=== PATIENT | male | born 1935 | race Caucasian/White ===

== ENCOUNTER 2016-05-22 13:22 | Inpatient (IN) | payer MEDICARE, OTHER ==
[2016-05-22] MEDS ORDERED: SODIUM CHLORIDE 0.9% 3 ML FLUSH FLUSH PRN ×2 (13:25→14:46)
[2016-05-22] MEDS ORDERED: Albuterol/Ipratropium Neb 3 ML NEB NEB ONE (13:27)
[2016-05-22] MEDS ORDERED: AZITHROMYCIN 500 MG in D5W 250 ML IV ONE (13:28)
[2016-05-22] MEDS ORDERED: CEFTRIAXONE 2 GM in D5W 100 ML IV ONE (13:28)
[2016-05-22] MEDS ORDERED: NS 1,000 ML IV ONE ×3 (13:28→14:46)
[2016-05-22 13:45] LABS: MPV 8.2 fL (7.4-10.4)
--- NOTE | 2016-05-22 13:51 | EDPRACDOC ---
- History of Present Illness HPI: NOTE HERE WITH GRANDDAUGHTER; SENT OVER BY DR. CLAY FROM ; HX OF GLAUCOMA AND TURP; COUGH, CONGESTION, AND SHOB FOR COUPLE OF WEEKS; SEE ABOVE BUT NOT IMPROVING. 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 PT STATES HAS BEEN SICK FOR APPROX 1-2 WEEKS WITH SAME WAS GIVEN STEROIDS BUT NOT GETTING ANY BETTER. PT STATES HAVING COUGH INCREASED SOB YELLOW THICK SPUTUM PRODUCTION. STATES GETS REALLY SOB WHEN WALKING. Symptoms: Reports: Cough, Other (SOB) Recent Medications: Reports: Steroids Relevant History Of: Reports: None Shortness of Breath: Moderate Cough Frequency: Intermittent Cough Description: Reports: Productive, Congested (YELLOW SPUTUM) Ear Symptoms: Reports: None Associated Signs and Symptoms: Reports: Cough, Other (SOB) <Dong Lynne - Last Filed: 05/22/16 14:44> - General Information Chief Complaint: Generalized Weakness Stated Complaint: SENT FROM URGENT CARE Time Seen by Provider: 05/22/16 13:25 Home Medications: Home Medications Dorzolamide HCl/Timolol Maleat [Dorzolamide-Timolol Eye Drops] 1 drop OU QAM 01/03 Latanoprost 1 drop OU DAILY 06/27/15 Allergies/Adverse Reactions: Allergies Allergy/AdvReac Type Severity Reaction Status Date / Time No Known Allergies Allergy Verified 05/22/16 13:24 ED Past Medical History - History Reviewed Yes Nurses notes reviewed and agree except as marked Travel Outside of [place] in the Last 3 Months?: No - Patient Medical History Cardiac History: Reports: Syncope (NEAR SYNCOPAL EPISODE) GI/ History: Reports: BPH (HAD TURP) Musculoskeletal History: Reports: Arthritis (Chronic back pain.) Psychological History: Denies: Substance Use Disorder Surgical History: Reports: Hernia Surgery (and TURVP by Dr. Delgadillo 06/28/15. also Hemorrhoidectomy.), Other (Lumbar fusion 1999's. Right foot 2015. R shoulder 1999's.) - Family Medical History Reports: Hypertension (BROTHER), Cancer (MOTHER LUNG CA, SISTER CA), Cardiac Disorders (FATHER: [place].). Denies: Diabetes, Stroke - Social Medical History Smoking Status: Never smoker Social History: Denies: Substance Use Disorder ETOH: None Substance Abuse: None Lives With: Other Lives In: Home <Dong Lynne - Last Filed: 05/22/16 14:44> EDM Review of Systems - Review of Systems ROS Negative Except as Marked: Yes All systems reviewed and were negative except as marked Constitutional: Weakness. negative: Chills, Fever, Fatigue, Loss of Appetite Eyes: No Symptoms Reported. negative: Redness, Blurred Vision, Double Vision, Discharge, Pain, Light Sensitive, Photophobia Ears: No Symptoms Reported. negative: Pain, Hearing Loss, Drainage, Ear Pulling Throat: No Symptoms Reported. negative: Pain, Swelling Nose: No Symptoms Reported. negative: Congestion, Bleeding, Discharge, Injection, Swelling, Deformity, Ecchymosis, Tender, Abrasion, Laceration Mouth: No Symptoms Reported. negative: Pain, Drooling Respiratory: Cough, Shortness of Breath. negative: Barky Cough, Brassy Cough, Hemoptysis, Wheezing Cardiovascular: No Symptoms Reported. negative: Chest Pain, Palpitations, Syncope, Edema, Orthopnea, PND, Skin Mottling, Cyanosis Gastrointestinal: No Symptoms Reported. negative: Pain, Constipation, Nausea, Vomiting, Diarrhea, Melena, Formula Intolerance Genitourinary: No Symptoms Reported. negative: Dysuria, Hematuria, Frequency, Discharge, Bleeding, Testicular Pain, Neurological: Weakness (GENERALIZED). negative: Dizziness, Gait Difficulty, Headache, Numbness, Seizure, Speech Difficulty Musculoskeletal: No Symptoms Reported. negative: Neck, Chestwall, Ribs, Back, Shoulder, Arm, Elbow, Forearm, Wrist, Hand, Pelvis, Hip, Femur, Knee, Leg, Ankle , Foot Integumentary: No Symptoms Reported. negative: Itching, Rash, Bruising, Wound Allergic/Immunologic: No Symptoms Reported. negative: Hives, Itching Hematologic: No Symptoms Reported. negative: Lymphadenopathy, Easy Bruising, Easy Bleeding Endocrine: No Symptoms Reported. negative: Weight Gain, Weight Loss Psychiatric: No Symptoms Reported. negative: Anxiety, Depression, Hallucinations, Insomnia, Suicidal <Dong Lynne - Last Filed: 05/22/16 14:44> - Physical Exam Last recorded Vital Signs: Last Vital Signs Temp 97.7 F 05/22/16 13:24 Pulse 114 05/22/16 13:24 Resp 22 05/22/16 13:48 BP 120/66 05/22/16 13:24 Pulse Ox 93 05/22/16 13:24 Oxygen Pulse Oxygen Saturation 93 O2 Device Room Air Oxygen Flow Rate Fraction of Inspired Oxygen ( 90 FIO2) <Nirmal Charles - Last Filed: 05/22/16 14:39> - Physical Exam Constitutional: No apparent distress, Alert (Awake) Oriented to: Time, Person, Place Last recorded Vital Signs: Last Vital Signs Temp 97.7 F 05/22/16 13:24 Pulse 114 05/22/16 13:24 Resp 20 05/22/16 13:24 BP 120/66 05/22/16 13:24 Pulse Ox 93 05/22/16 13:24 Oxygen Pulse Oxygen Saturation 93 O2 Device Room Air Oxygen Flow Rate Fraction of Inspired Oxygen ( FIO2) - HEENT Head: Normal ( normocephalic) Eye Exam: Normal (PERRL, EOMI, Sclera white) Oropharynx: Normal (Pharynx:Moist without exudate,Gums-no swelling) Tympanic Membrane: Normal ENT EAC: Normal TMJ: Normal Nose: No Symptoms Reported (septum midline) Neck: Normal (FROM, trachea at midline) - Respiratory/Cardiovascular Respiratory: Diminished, Rhonchi, Wheezes, Other (RHONCHI AND WHEEZING WORSE ON RIGHT) Cardiovascular: Tachycardia - GI Auscultation: Normal (NABS) Palpation: Normal (Soft,No rebound or guarding, non distended) Tenderness: Non tender Traylor's Sign: Negative - Bladder: Normal - Musculoskeletal Back: Normal (Non-Tender) Extremities: Normal (Normal tone, Pulses 2+ No cyanosis or edema, FROM) - Integumentary Skin: Normal, Warm, Dry Lymphatics: Normal (no adenopathy) - Neurologic Memory Impaired: Normal Motor Function: Normal (Normal tone, Pulses 2+ No cyanosis or edema, FROM) Cranial Nerve: Normal (CN II-X11 intact sensation, strength 5/5) Cerebellar: Normal Mood Description: Normal Perception: Normal <Dong Lynne - Last Filed: 05/22/16 14:44> - Results 05/22/16 13:35 05/22/16 13:35 WBC 28.8 xk/uL (3.8-10.8) H 05/22/16 13:35 RBC 3.78 xM/uL (4.70-6.10) L 05/22/16 13:35 Hgb 11.5 g/dL (14.0-18.0) L 05/22/16 13:35 Hct 32.9 % (42-52) L 05/22/16 13:35 MCV 87 fL (80-94) 05/22/16 13:35 MCH 30.4 pg (27-32) 05/22/16 13:35 MCHC 34.9 g/dl (33-36) 05/22/16 13:35 RDW 17.9 % (11.5-14.5) H 05/22/16 13:35 Plt Count 345 xk/uL (130-400) 05/22/16 13:35 MPV 8.2 fL (7.4-10.4) 05/22/16 13:35 Lab Results 05/22/16 13:35 WBC 28.8 H RBC 3.78 L Hgb 11.5 L Hct 32.9 L MCV 87 MCH 30.4 MCHC 34.9 RDW 17.9 H Plt Count 345 MPV 8.2 <Nirmal Charles - Last Filed: 05/22/16 14:39> - Differential Diagnosis Bronchitis, Pneumonia, Other (RESPIRATORY FAILURE) - Results 05/22/16 13:35 05/22/16 13:35 - EKG EKG #1 EKG Time: 13:38 -: Yes EKG interpreted by me Rate: bpm: 108 [place]: Normal Rhythm: ST Block: None Hypertrophy: None ST: Normal <Dong Lynne - Last Filed: 05/22/16 14:44> ED Critical Care Note - Critical Care Note Total Time (mins): 35 <Nirmal Charles - Last Filed: 05/22/16 14:39> - Departure Yes I personally saw and evaluated the patient. Disposition: Admit IP To This Hospital Decision to Admit Time: 14:40 (IKRAM) Decision to admit date: 05/22/16 Decision to admit: from ED <Nirmal Charles - Last Filed: 05/22/16 14:39> - Departure Education/Counseling Given To: Patient Education/Counseling Given Regarding: Diagnosis, Treatment, Prognosis, Follow Up - Physician Consulted Hospitalist Time Called: 14:40 Provider Called: Nico Quezada (WILL ADMIT) <Dong Lynne - Last Filed: 05/22/16 14:44> - Departure Condition: Fair Final Diagnosis: BRONCHOPNEUMONIA, LEUKOCYTOSIS WITH LEFT SHIFT, PRE RENAL AZOTEMIA Instructions: Weakness (ED) Referrals: None,No Provider [Primary Care Provider] - One Week Prescriptions: No Action Latanoprost 1 drop OU DAILY Dorzolamide HCl/Timolol Maleat [Dorzolamide-Timolol Eye Drops] 1 drop OU QAM
[2016-05-22 13:59] LABS: BLOOD UREA NITROGEN 64 MG/DL (9-20); CALC CORRECTED 10.1 MG/DL (8.4-10.2); CALCIUM 9.9 MG/DL (8.4-10.2); CALCULATED OSMOLALITY 288 MOs/Kg (270-290); CHLORIDE 99 mEq/L (98-107); CPK TOTAL WITH POSSIBLE MB 30 IU/L (55-170); GLUCOSE 281 mg/dL (70-99); SODIUM LEVEL 135 mEq/L (137-146); TOTAL PROTEIN 7.2 G/DL (6.3-8.2)
[2016-05-22 14:00] LABS: ALLEN'S TEST PASS
[2016-05-22 14:01] LABS: ABG Draw Site Left Radial
[2016-05-22 14:05] LABS: PARTIAL THROMB. TIME 21.8 SEC (22-35)
[2016-05-22 14:10] LABS: SEG NEUTROPHIL 87 % (45-76)
--- NOTE | 2016-05-22 14:25 | DIRPT ---
CLINICAL DATA: 80-year-old male with cough and shortness of breath. Tachycardia and hypotension at urgent care. Initial encounter. EXAM: CHEST 2 VIEW COMPARISON: CT Abdomen and Pelvis 06/29/2015 FINDINGS: Chronic moderate to large gastric hiatal hernia. Other mediastinal contours are within normal limits. Visualized tracheal air column is within normal limits. Streaky retrocardiac opacity superimposed and likely reflects chronic atelectasis/scarring similar to that seen on the comparison. No pneumothorax or pulmonary edema. No pleural effusion. No definite acute pulmonary opacity. Negative visible bowel gas pattern. No acute osseous abnormality identified. IMPRESSION: Chronic hiatal hernia with chronic retrocardiac opacity favored to be atelectasis/scarring. No definite acute cardiopulmonary abnormality. Electronically Signed By: Nyasia Grey M.D. On: 05/22/2016 14:22
[2016-05-22] MEDS ORDERED: ACETAMINOPHEN 325 MG/TAB TABLET PO PRN (14:46)
[2016-05-22] MEDS ORDERED: DOCUSATE-SENNA CONCENTRATE TAB PO PRN (14:46)
[2016-05-22] MEDS ORDERED: GLUCOSE (ORAL GEL) 15 GM TUBE PO PRN (14:46)
[2016-05-22] MEDS ORDERED: Albuterol/Ipratropium Neb 3 ML NEB NEB PRN (14:46)
[2016-05-22] MEDS ORDERED: SIMETHICONE 80 MG TAB PO PRN (14:46)
[2016-05-22] MEDS ORDERED: DEXTROSE 25 GM/50 ML PFS IV PRN (14:46)
[2016-05-22] MEDS ORDERED: ACETAMINOPHEN 650 MG SUPP PR PRN (14:46)
[2016-05-22] MEDS ORDERED: ONDANSETRON HCL 4 MG/2 ML VIAL IV PRN (14:46)
[2016-05-22] MEDS ORDERED: METOCLOPRAMIDE 10 MG/2 ML VIAL IV PRN (14:46)
[2016-05-22] MEDS ORDERED: GLUCAGON 1 MG VIAL SQ PRN (14:46)
[2016-05-22] MEDS ORDERED: DORZOLAMIDE/TIMOLOL OPHTH SOLN 10 ML OU SCH (15:00)
[2016-05-22 15:01] LABS: LEUKOCYTES/URINE NEG (NEGATIVE); NITRITE/URINE NEG (NEGATIVE); RBC/URINE 0-2 (0-2); URINE OCCULT BLOOD NEG (NEG/TRACE); WBC/URINE 0-2 (0-2)
[2016-05-22] MEDS ORDERED: LATANOPROST 0.005% OPHTH SOLN 2.5 ML OU SCH (16:00)
--- NOTE | 2016-05-22 17:00 | HISTPHYS ---
- Chief Complaint COUGH, CHEST CONGESTION - History of Present Illness Mr. Lion Latham is a very pleasant white gentleman who presented to the ED reporting a productive cough, fever and chills for 2 weeks. He has been to see his primary care provider, Dr. Cristi Manriquez, who diagnosed him with acute bronchitis and treated him with a steroid taper. The patient did not feel any better after taking the medication. He reports aching all over, flu-like symptoms, productive cough with yellow sputum, and persistent cough and bronchospasm. He has never smoked, does not drink any alcohol, and does not have any history of heart or lung problems. - Medical History Cardiac History: Reports: Syncope (NEAR SYNCOPAL EPISODE). Denies: Coronary Artery Disease, Hypertension, Heart Attack, Cardiac Catheterization, Valvular Heart Disease Respiratory History: Reports: Bronchitis, Cough. Denies: Asthma, COPD, Chronic Bronchitis GI/ History: Reports: Kidney Stones, BPH (HAD TURP) Musculoskeletal History: Reports: Arthritis (Chronic back pain.), Osteoarthritis Systemic History: Reports: No Significant History. Denies: Anemia, Diabetes, Hypothyroidism Neurological History: Reports: No Significant History Psychological History: Reports: No Significant History. Denies: Substance Use Disorder glaucoma - Surgical History Reports: Hernia Surgery (and TURVP by Dr. Delgadillo 06/28/15. also Hemorrhoidectomy.), Other (Lumbar fusion 1999's. Right foot 2015. R shoulder 1999's.) - Medictions/Allergies Allergies No Known Allergies Allergy (Verified 05/22/16 16:43) Current Medication List: Reviewed Home Medications Dorzolamide HCl/Timolol Maleat [Dorzolamide-Timolol Eye Drops] 1 drop OU QAM 01/03 Latanoprost 1 drop OU DAILY 06/27/15 - Family History Reports: Hypertension (BROTHER), Cancer (MOTHER LUNG [place], SISTER CA), Cardiac Disorders (FATHER: [place].), Renal Disease (Brother -CKD (dialysis)). Denies: Diabetes, Stroke - Social History Travel Outside of [place] in the Last 3 Months?: No Lives: with Spouse Smoking Status: Never smoker Social History: Denies: Alcohol Use, Substance Use Disorder - Review of Systems Constitutional: Chills, Fever, Fatigue, Weakness, Weight loss Eyes: Light Sensitive, Glaucoma Ears: Hearing Loss Nose: No Symptoms Reported Mouth: No Symptoms Reported, Denture, Other (edentulous) Throat/Neck: No Symptoms Reported. negative: Pain, Hoarseness, Snoring, Lymphadenopathy Respiratory: Brassy Cough, Cough, Shortness of Breath, Wheezing, Bronchitis Cardiovascular: Chest Pain, Syncope. negative: Edema, Palpitations, PND Gastrointestinal: Nausea, Heartburn. negative: Vomiting, Abdominal Pain, Diarrhea, Constipation, Melena Genitourinary: No Symptoms Reported, Nocturia, Benign prostatic hyperplasia (BPH ). negative: Testicular Pain Neurological: Dizziness, Headache, Weakness Musculoskeletal:: Osteoarthritis Integumentary: No Symptoms Reported Allergic/Immunologic: No Symptoms Reported Hematologic: No Symptoms Reported Endocrine: No Symptoms Reported Psychiatric: No Symptoms Reported - Physical Exam Vital Signs: Initial Vitals Temperature 97.7 F 05/22/16 13:24 Pulse Rate 114 05/22/16 13:24 Respiratory Rate 20 05/22/16 13:24 Blood Pressure 120/66 05/22/16 13:24 Pulse Oxygen Saturation 93 05/22/16 13:24 Constitutional: No apparent distress, Alert, Well nourished, Well appearing Oriented to: Time, Person, Place - HEENT Head: Normal Eye: Normal (PERRL: EOMI) Oropharynx: Normal. negative: Drooling, Exudate, Red Tympanic Membrane: Dull ENT EAC: negative: Cerumen TMJ: Normal Nose: negative: Bleeding, Congestion, Discharge Respiratory: Normal - CTA, Diminished Cardiovascular: Normal, Tachycardia - GI Auscultation: Normal Palpation: Normal (soft, nondistended, no mass) Tenderness: Non tender Tryalor's Sign: Negative Rectal Exam: Deferred - Exam Deferred: Yes - Musculoskeletal Back: Normal Extremities: Normal, Pedal Pulse (normal), Radial Pulse (normal). negative: Clubbing, Cyanosis, Edema Spine: normal alignment, normal inspection - Integumentary Skin: Warm, Dry Lymphatics: Normal - Neurologic Memory Impaired: Normal Motor Function: Normal Cranial Nerve: Normal Cerebellar: Normal Mood Description: Normal Thought: Coherent Perception: Normal - Focused CV Perfusion Exam Vital Signs: Last Vital Signs Temp 98.5 F 05/22/16 16:10 Pulse 106 05/22/16 16:10 Resp 20 05/22/16 16:10 BP 122/66 05/22/16 16:10 Pulse Ox 96 05/22/16 16:10 - Lab Results Laboratory Tests 05/22/16 05/22/16 05/22/16 13:35 13:35 13:35 WBC 28.8 H Hgb 11.5 L Hct 32.9 L Plt Count 345 Seg Neuts % (Manual) 87 H Band Neutrophils % 0 Lymphocytes % (Manual) 7 L Monocytes % (Manual) 6 PT INR APTT pH pCO2 pO2 HCO3 Total CO2 Sodium 135 L Potassium 4.4 Chloride 99 Carbon Dioxide 25 Anion Gap 15 BUN 64 H Creatinine 1.30 H Estimated GFR (MDRD) 53 L Glucose 281 H Calculated Osmolality 288 Lactic Acid 1.0 Corrected Calcium 10.1 Total Bilirubin 0.9 AST 20 ALT 51 Alkaline Phosphatase 85 Creatine Kinase 30 L Troponin I < 0.01 Inf-G-Jymcrqddhnz Pept 145 Total Protein 7.2 Albumin 3.8 Urine Color Urine Clarity Urine pH Ur Specific [place] Urine Protein Urine Glucose (UA) Urine Ketones Urine Nitrite Urine RBC Urine WBC Urine Bacteria Hyaline Casts Urine Sperm 05/22/16 05/22/16 05/22/16 13:35 13:53 14:26 WBC Hgb Hct Plt Count Seg Neuts % (Manual) Band Neutrophils % Lymphocytes % (Manual) Monocytes % (Manual) PT 10.0 INR 1.0 APTT 21.8 L pH 7.510 H pCO2 29.0 L pO2 67.0 L HCO3 23.1 Total CO2 24.0 Sodium Potassium Chloride Carbon Dioxide Anion Gap BUN Creatinine Estimated GFR (MDRD) Glucose Calculated Osmolality Lactic Acid Corrected Calcium Total Bilirubin AST ALT Alkaline Phosphatase Creatine Kinase Troponin I Cau-L-Cnupgemkdpu Pept Total Protein Albumin Urine Color Yellow Urine Clarity Clear Urine pH 5.0 Ur Specific [place] 1.025 Urine Protein Neg Urine Glucose (UA) 2+ Urine Ketones Neg Urine Nitrite Neg Urine RBC 0-2 Urine WBC 0-2 Urine Bacteria Few Hyaline Casts 2-5 H Urine Sperm Occ H - Diagnostic Findings CXR: FINDINGS: Chronic moderate to large gastric hiatal hernia. Other mediastinal contours are within normal limits. Visualized tracheal air column is within normal limits. Streaky retrocardiac opacity superimposed and likely reflects chronic atelectasis/scarring similar to that seen on the comparison. No pneumothorax or pulmonary edema. No pleural effusion. No definite acute pulmonary opacity. Negative visible bowel gas pattern. No acute osseous abnormality identified. IMPRESSION: Chronic hiatal hernia with chronic retrocardiac opacity favored to be atelectasis/scarring. No definite acute cardiopulmonary abnormality. Electronically Signed By: Nyasia Grey M.D. On: 05/22/2016 14:22 - Assessment (1) Sepsis A41.9 - SEPSIS, UNSPECIFIED ORGANISM Acute Present on Admission: Yes Admit. Obtain blood, urine, and sputum cultures. Begin IV fluid resuscitation and IV antibiotics. Follow sepsis protocol. (2) Pneumonia due to aerobic bacteria J15.8 - PNEUMONIA DUE TO OTHER SPECIFIED BACTERIA Acute Present on Admission: Yes Obtain sputum and blood cultures, begin IV antibiotics with IV Rocephin and Zithromax. Add IV steroids for bronchospasm, and supplemental oxygen for hypoxia. Monitor O2 sats and CXR. (3) TOM (acute kidney injury) N17.9 - ACUTE KIDNEY FAILURE, UNSPECIFIED Acute Present on Admission: Yes Hydrate, avoid nephrotoxic medications, and follow renal function. (4) Acute lower respiratory infection J22 - UNSPECIFIED ACUTE LOWER RESPIRATORY INFECTION Acute Present on Admission: Yes Patient with a significant amount of acute wheezing and bronchospasm. Add IV steroids provide supplemental O2, DuoNebs, and monitor O2 sats. (5) Leukocytosis D72.829 - ELEVATED WHITE BLOOD CELL COUNT, UNSPECIFIED Acute Present on Admission: Yes Qualifiers: Leukocytosis type: leukemoid reaction Qualified Code(s): D72.823 - Leukemoid reaction Possibly due to recent steroid dose-pack, but may be due to severity of infection also. Case Care Discussed with: Patient, Family, Nursing Staff Total Time: 65 min Critical Care: Yes Couseling Time (>50% in counseling/coordination): Yes Code: 291
[2016-05-22] MEDS: SODIUM CHLORIDE 0.9% 3 ML FLUSH FLUSH SCH ×2 (17:57→18:00)
[2016-05-22] MEDS: ENOXAPARIN 40 MG/0.4 ML PFS SQ SCH (17:58)
[2016-05-22] MEDS ORDERED: METHYLPREDNISOLONE 125 MG/2 ML VIAL IV ONE (18:00)
[2016-05-22] MEDS: NS 1,000 ML IV SCH ×2 (18:07→18:12)
[2016-05-22] MEDS: BENZONATATE 100 MG PERLES PO PRN (18:08)
[2016-05-22] MEDS: REGULAR INSULIN 100 UNITS/ML - 3 ML VIAL SQ SCH ×2 (18:18→21:28)
[2016-05-22] MEDS ORDERED: Vaccine Screening Complete SCH (19:00)
[2016-05-22] MEDS: Albuterol/Ipratropium Neb 3 ML NEB NEB SCH (19:03)
[2016-05-22] MEDS: TUSSIONEX 5 ML ORAL SYRINGE PO PRN (22:59)
[2016-05-22] MEDS: METHYLPREDNISOLONE 125 MG/2 ML VIAL IV SCH (22:59)
[2016-05-23] MEDS: Albuterol/Ipratropium Neb 3 ML NEB NEB SCH ×4 (01:17→19:10)
[2016-05-23] MEDS: NS 1,000 ML IV SCH ×3 (02:03→13:05)
[2016-05-23] MEDS: METHYLPREDNISOLONE 125 MG/2 ML VIAL IV SCH ×4 (04:52→20:57)
[2016-05-23] MEDS: SODIUM CHLORIDE 0.9% 3 ML FLUSH FLUSH SCH ×3 (04:53→16:37)
[2016-05-23 05:07] LABS: MPV 8.4 fL (7.4-10.4)
[2016-05-23 05:23] LABS: BLOOD UREA NITROGEN 44 MG/DL (9-20); CALCIUM 8.1 MG/DL (8.4-10.2); CALCULATED OSMOLALITY 276 MOs/Kg (270-290); CHLORIDE 107 mEq/L (98-107); GLUCOSE 197 mg/dL (70-99); SODIUM LEVEL 135 mEq/L (137-146)
[2016-05-23 05:53] LABS: SEG NEUTROPHIL 95 % (45-76)
[2016-05-23] MEDS: BENZONATATE 100 MG PERLES PO PRN (06:12)
[2016-05-23] MEDS: REGULAR INSULIN 100 UNITS/ML - 3 ML VIAL SQ SCH ×4 (06:12→20:55)
--- NOTE | 2016-05-23 07:39 | DIRPT ---
CLINICAL DATA: Follow-up of pneumonia EXAM: PORTABLE CHEST 1 VIEW COMPARISON: PA and lateral chest x-ray of May 22, 2016. FINDINGS: The lungs are hypoinflated but the patient is positioned in a lordotic fashion. There remains gas density in the retrocardiac region on the left compatible with a known large hiatal hernia -partially intra thoracic stomach. There is mild blunting of the left lateral costophrenic angle. The lungs exhibit no discrete infiltrates though mild atelectasis on the left is not excluded. The heart is not enlarged. The pulmonary vascularity is normal. IMPRESSION: No definite pneumonia. There is a hiatal hernia -partially intra thoracic stomach which increases the retrocardiac densities. A small amount of left lower lobe atelectasis and trace left pleural effusion may be present. Electronically Signed By: Gutierrez Guerra M.D. On: 05/23/2016 07:37
[2016-05-23] MEDS: DORZOLAMIDE/TIMOLOL OPHTH SOLN 10 ML OU SCH (08:41)
[2016-05-23] MEDS: LATANOPROST 0.005% OPHTH SOLN 2.5 ML OU SCH (11:18)
--- NOTE | 2016-05-23 11:40 | GENMEDPROG ---
Currently: Reports: Cough, GARNER, SOB. Denies: Wheezing, Tobacco Use/Hx, Alcohol Hx DVT Prophylaxis: Yes - Physical Examination Vital Signs and I&O: Last Vital Signs Temp 98.6 F 05/23/16 08:00 Pulse 98 05/23/16 11:05 Resp 20 05/23/16 08:00 BP 131/61 05/23/16 08:00 Pulse Ox 93 05/23/16 08:00 Oxygen Pulse Oxygen Saturation 93 O2 Device Nasal Cannula Oxygen Flow Rate 2 Fraction of Inspired Oxygen ( 2 FIO2) Intake & Output 05/20/16 05/21/16 05/22/16 05/23/16 23:59 23:59 23:59 23:59 Intake Total 1450 1840 Output Total 300 575 Balance 1150 1265 Patient's weight 61.802 kg 61.371 kg General: Alert, Oriented x3, Cooperative, Mild distress HEENT: Normal, PERRLA, EOMI, Anicteric Sclera, Mucous membr. moist/pink Neck: Non-tender, Full range of motion, Normal Trachea alignment, Normal inspection, No Masses palpable, No Thyromegaly palpable Lymphatics: Normal Respiratory: Normal - CTA, Diminished, Rales, Tachypnea. negative: Wheezes Cardiovascular: Regular rate and rhythm, Normal S1, Normal S2 GI: Normal bowel sounds, Soft, Non tender, No masses Extremities/Musculoskeletal: Normal pulses, DJD, FROM, Motor 5/5 throughout. negative: Edema Skin: Warm,Dry and Intact, No rashes, No breakdown Neurological: Normal speech, Strength at 5/5 X4 ext, Normal tone, Cranial nerves 3-12 NL Psych/Mental Status: Appropriate, Normal Affect, Cooperative Lab/DI/Studies Reviewed: Laboratory Tests 05/23/16 05/23/16 05/23/16 04:10 04:10 04:10 WBC 16.3 H Hgb 8.4 L D Hct 24.5 L Plt Count 231 Seg Neuts % (Manual) 95 H Band Neutrophils % 1 Lymphocytes % (Manual) 3 L PT 10.7 INR 1.0 Sodium 135 L Potassium 4.8 Chloride 107 Carbon Dioxide 22 Anion Gap 11 BUN 44 H Creatinine 0.90 Estimated GFR (MDRD) > 60 Glucose 197 H POC Capillary Glucose Calculated Osmolality 276 Calcium 8.1 L 05/23/16 05:19 WBC Hgb Hct Plt Count Seg Neuts % (Manual) Band Neutrophils % Lymphocytes % (Manual) PT INR Sodium Potassium Chloride Carbon Dioxide Anion Gap BUN Creatinine Estimated GFR (MDRD) Glucose POC Capillary Glucose 265 H Calculated Osmolality Calcium - Assessment (1) Sepsis Acute A41.9 - SEPSIS, UNSPECIFIED ORGANISM Qualifiers: Sepsis type: sepsis due to unspecified organism Qualified Code(s): A41.9 - Sepsis, unspecified organism Comment/Plan: Obtained blood, urine, and sputum cultures. Continue IV fluid resuscitation and IV antibiotics. Follow sepsis protocol. (2) Pneumonia due to aerobic bacteria Acute J15.8 - PNEUMONIA DUE TO OTHER SPECIFIED BACTERIA Comment/Plan: Continue IV antibiotics with IV Rocephin and Zithromax. Also IV steroids for bronchospasm, and supplemental oxygen for hypoxia. Monitor O2 sats and CXR. Doing better. (3) TOM (acute kidney injury) Acute N17.9 - ACUTE KIDNEY FAILURE, UNSPECIFIED Comment/Plan: Hydrate, avoid nephrotoxic medications, and follow renal function. (4) Acute lower respiratory infection Acute J22 - UNSPECIFIED ACUTE LOWER RESPIRATORY INFECTION Comment/Plan: Wheezing and bronchospasm have imprved greatly. Wean IV steroids,continu supplemental O2, DuoNebs, and monitor O2 sats. (5) Leukocytosis Acute D72.829 - ELEVATED WHITE BLOOD CELL COUNT, UNSPECIFIED Qualifiers: Leukocytosis type: leukemoid reaction Qualified Code(s): D72.823 - Leukemoid reaction Comment/Plan: Possibly due to recent steroid dose-pack, but may be due to severity of infection also. Case Care Discussed with: Patient, Family, Nursing Staff Education/Counseling Given To: Patient, Family Member Education/Counseling Given Regarding: Diagnosis, Treatment, Prognosis Total Time: 35 min Critical Care: No Couseling Time (>50% in counseling/coordination): No Code: 65800 (12+)
[2016-05-23] MEDS: CEFTRIAXONE 1 GM in D5W 100 ML IV SCH (11:43)
[2016-05-23] MEDS: AZITHROMYCIN 500 MG in D5W 250 ML IV SCH (13:07)
[2016-05-23] MEDS: ENOXAPARIN 40 MG/0.4 ML PFS SQ SCH (16:38)
[2016-05-23] MEDS: TEMAZEPAM 15 MG CAP PO PRN (21:00)
[2016-05-24] MEDS: Albuterol/Ipratropium Neb 3 ML NEB NEB SCH ×4 (01:20→19:17)
[2016-05-24 03:56] LABS: MPV 8.6 fL (7.4-10.4)
[2016-05-24 04:10] LABS: BLOOD UREA NITROGEN 39 MG/DL (9-20); CALCIUM 8.1 MG/DL (8.4-10.2); CALCULATED OSMOLALITY 273 MOs/Kg (270-290); CHLORIDE 107 mEq/L (98-107); GLUCOSE 137 mg/dL (70-99); SODIUM LEVEL 136 mEq/L (137-146)
[2016-05-24 04:42] LABS: SEG NEUTROPHIL 98 % (45-76)
[2016-05-24] MEDS: SODIUM CHLORIDE 0.9% 3 ML FLUSH FLUSH SCH ×2 (05:23→18:16)
[2016-05-24] MEDS: METHYLPREDNISOLONE 125 MG/2 ML VIAL IV SCH ×3 (05:37→18:18)
[2016-05-24] MEDS: REGULAR INSULIN 100 UNITS/ML - 3 ML VIAL SQ SCH ×4 (05:38→20:07)
[2016-05-24] MEDS: DORZOLAMIDE/TIMOLOL OPHTH SOLN 10 ML OU SCH (08:24)
[2016-05-24] MEDS: LATANOPROST 0.005% OPHTH SOLN 2.5 ML OU SCH (11:29)
[2016-05-24] MEDS: CEFTRIAXONE 1 GM in D5W 100 ML IV SCH (12:29)
[2016-05-24] MEDS: AZITHROMYCIN 500 MG in D5W 250 ML IV SCH (14:37)
[2016-05-24] MEDS: NS 1,000 ML IV SCH ×2 (14:38→16:14)
[2016-05-24] MEDS: BENZONATATE 100 MG PERLES PO PRN (14:42)
--- NOTE | 2016-05-24 14:52 | GENMEDPROG ---
Currently: Reports: Cough, GARNER, SOB. Denies: Wheezing, Tobacco Use/Hx, Alcohol Hx DVT Prophylaxis: Yes - Physical Examination Vital Signs and I&O: Last Vital Signs Temp 98.1 F 05/24/16 11:33 Pulse 99 05/24/16 12:29 Resp 18 05/24/16 11:33 BP 163/85 05/24/16 11:33 Pulse Ox 93 05/24/16 13:46 Oxygen Pulse Oxygen Saturation 93 O2 Device Nasal Cannula Oxygen Flow Rate 0.5 Fraction of Inspired Oxygen ( 2 FIO2) Intake & Output 05/21/16 05/22/16 05/23/16 05/24/16 23:59 23:59 23:59 23:59 Intake Total 1450 3892 1502 Output Total 300 1300 875 Balance 1150 3052 627 Patient's weight 61.802 kg 61.371 kg 61.263 kg General: Alert, Oriented x3, Cooperative, Mild distress HEENT: Normal, PERRLA, EOMI, Anicteric Sclera, Mucous membr. moist/pink Neck: Non-tender, Full range of motion, Normal Trachea alignment, Normal inspection, No Masses palpable, No Thyromegaly palpable Lymphatics: Normal Respiratory: Diminished, Rales, Rhonchi (WORSE ON LEFT), Tachypnea. negative: Wheezes Cardiovascular: Regular rate and rhythm, Normal S1, Normal S2 GI: Normal bowel sounds, Soft, Non tender, No masses Extremities/Musculoskeletal: Normal pulses, DJD, FROM, Motor 5/5 throughout. negative: Edema Skin: Warm,Dry and Intact, No rashes, No breakdown Neurological: Normal speech, Strength at 5/5 X4 ext, Normal tone, Cranial nerves 3-12 NL Psych/Mental Status: Appropriate, Normal Affect, Cooperative Lab/DI/Studies Reviewed: Laboratory Tests 05/24/16 05/24/16 05/24/16 02:55 02:55 04:31 WBC 18.7 H Hgb 7.9 L Hct 22.7 L Plt Count 250 Seg Neuts % (Manual) 98 H Band Neutrophils % 0 Lymphocytes % (Manual) 2 L Sodium 136 L Potassium 4.2 Chloride 107 Carbon Dioxide 21 L Anion Gap 12 BUN 39 H Creatinine 1.00 Estimated GFR (MDRD) > 60 Glucose 137 H POC Capillary Glucose 257 H Calculated Osmolality 273 Calcium 8.1 L - Assessment (1) Sepsis Acute A41.9 - SEPSIS, UNSPECIFIED ORGANISM Qualifiers: Sepsis type: sepsis due to unspecified organism Qualified Code(s): A41.9 - Sepsis, unspecified organism Comment/Plan: Blood,& urine cultures are negative, and sputum culture- still pending. Continue IV fluid resuscitation and IV antibiotics. Follow sepsis protocol. (2) Pneumonia due to aerobic bacteria Acute J15.8 - PNEUMONIA DUE TO OTHER SPECIFIED BACTERIA Comment/Plan: Continue IV antibiotics with IV Rocephin and Zithromax. Also IV steroids for bronchospasm, and supplemental oxygen for hypoxia. Monitor O2 sats and CXR. Doing better. sputum culture- still pending (3) TOM (acute kidney injury) Acute N17.9 - ACUTE KIDNEY FAILURE, UNSPECIFIED Comment/Plan: Hydrate, avoid nephrotoxic medications, and follow renal function. (4) Acute lower respiratory infection Acute J22 - UNSPECIFIED ACUTE LOWER RESPIRATORY INFECTION Comment/Plan: Wheezing and bronchospasm have improved greatly. Wean IV steroids,continue supplemental O2, DuoNebs, and monitor O2 sats. (5) Leukocytosis Acute D72.829 - ELEVATED WHITE BLOOD CELL COUNT, UNSPECIFIED Qualifiers: Leukocytosis type: leukemoid reaction Qualified Code(s): D72.823 - Leukemoid reaction Comment/Plan: Possibly due to recent steroid dose-pack, but may be due to severity of infection also. Case Care Discussed with: Patient, Nursing Staff, Resource Management Education/Counseling Given To: Patient, Family Member Education/Counseling Given Regarding: Diagnosis, Treatment, Prognosis Total Time: 35 min Critical Care: No Couseling Time (>50% in counseling/coordination): No Code: 68684 (12+)
[2016-05-24] MEDS: TUSSIONEX 5 ML ORAL SYRINGE PO PRN (16:27)
[2016-05-24] MEDS: ENOXAPARIN 40 MG/0.4 ML PFS SQ SCH (18:17)
[2016-05-24] MEDS: TEMAZEPAM 15 MG CAP PO PRN (20:06)
[2016-05-25] MEDS: METHYLPREDNISOLONE 125 MG/2 ML VIAL IV SCH ×5 (01:00→23:43)
[2016-05-25] MEDS: Albuterol/Ipratropium Neb 3 ML NEB NEB SCH ×4 (01:10→19:16)
[2016-05-25] MEDS: SODIUM CHLORIDE 0.9% 3 ML FLUSH FLUSH SCH ×2 (02:01→17:03)
[2016-05-25 04:44] VITALS: BMI 23.4
[2016-05-25] MEDS: TUSSIONEX 5 ML ORAL SYRINGE PO PRN ×2 (06:34→17:08)
[2016-05-25] MEDS: REGULAR INSULIN 100 UNITS/ML - 3 ML VIAL SQ SCH ×4 (06:51→21:33)
[2016-05-25] MEDS: DORZOLAMIDE/TIMOLOL OPHTH SOLN 10 ML OU SCH (10:17)
[2016-05-25] MEDS: BENZONATATE 100 MG PERLES PO PRN (10:27)
[2016-05-25] MEDS: CEFTRIAXONE 1 GM in D5W 100 ML IV SCH (12:13)
--- NOTE | 2016-05-25 15:23 | GENMEDPROG ---
Chief Complaint: H flu pneumonia, Sepsis, TOM, Currently: Reports: Cough, GARNER, SOB. Denies: Wheezing, Tobacco Use/Hx, Alcohol Hx DVT Prophylaxis: Yes - Physical Examination Vital Signs and I&O: Last Vital Signs Temp 97.9 F 05/25/16 12:00 Pulse 96 05/25/16 14:44 Resp 18 05/25/16 12:00 BP 128/74 05/25/16 12:00 Pulse Ox 95 05/25/16 12:00 Oxygen Pulse Oxygen Saturation 95 O2 Device Nasal Cannula Oxygen Flow Rate 1 Fraction of Inspired Oxygen ( 2 FIO2) Intake & Output 05/22/16 05/23/16 05/24/16 05/25/16 23:59 23:59 23:59 23:59 Intake Total 1450 3892 1622 2473 Output Total 300 1300 1575 1250 Balance 1150 2592 47 1223 Patient's weight 61.802 kg 61.371 kg 61.263 kg 61.915 kg General: Alert, Oriented x3, Cooperative, Mild distress HEENT: Normal, PERRLA, EOMI, Anicteric Sclera, Mucous membr. moist/pink Neck: Non-tender, Full range of motion, Normal Trachea alignment, Normal inspection, No Masses palpable, No Thyromegaly palpable Lymphatics: Normal Respiratory: Diminished, Rales (left> right), Rhonchi (WORSE ON LEFT), Tachypnea. negative: Wheezes Cardiovascular: Regular rate and rhythm, Normal S1, Normal S2 GI: Normal bowel sounds, Soft, Non tender, No masses Extremities/Musculoskeletal: Normal pulses, DJD, FROM, Motor 5/5 throughout. negative: Edema Skin: Warm,Dry and Intact, No rashes, No breakdown Neurological: Normal speech, Strength at 5/5 X4 ext, Normal tone, Cranial nerves 3-12 NL Psych/Mental Status: Appropriate, Normal Affect, Cooperative - Assessment (1) Sepsis Acute A41.9 - SEPSIS, UNSPECIFIED ORGANISM Qualifiers: Sepsis type: Haemophilus influenzae Qualified Code(s): A41.3 - Sepsis due to Hemophilus influenzae Comment/Plan: Blood,& urine cultures are negative, and sputum culture- Haemophilus influenza. Continue IV fluid resuscitation and IV antibiotics. Follow sepsis protocol. (2) Haemophilus influenzae pneumonia Acute Qualifiers: Laterality: left Lung location: lower lobe of lung Qualified Code(s): J14 - Pneumonia due to Hemophilus influenzae Comment/Plan: Continue IV antibiotics with IV Rocephin and Zithromax. Also IV steroids for bronchospasm, and supplemental oxygen for hypoxia. Monitor O2 sats and CXR. Doing better. sputum culture-Haemophilus influenza (3) TOM (acute kidney injury) Acute N17.9 - ACUTE KIDNEY FAILURE, UNSPECIFIED Comment/Plan: Hydrate, avoid nephrotoxic medications, and follow renal function. (4) Acute lower respiratory infection Acute J22 - UNSPECIFIED ACUTE LOWER RESPIRATORY INFECTION Comment/Plan: Wheezing and bronchospasm have improved greatly. Wean IV steroids,continue supplemental O2, DuoNebs, and monitor O2 sats. (5) Leukocytosis Acute D72.829 - ELEVATED WHITE BLOOD CELL COUNT, UNSPECIFIED Qualifiers: Leukocytosis type: leukemoid reaction Qualified Code(s): D72.823 - Leukemoid reaction Comment/Plan: Possibly due to recent steroid dose-pack, but may be due to severity of infection also. - Plan Probable discharge 1-2 days Case Care Discussed with: Patient, Family, Nursing Staff, Resource Management Education/Counseling Given To: Patient Education/Counseling Given Regarding: Diagnosis, Treatment, Prognosis Total Time: 35 min Critical Care: No Couseling Time (>50% in counseling/coordination): No Code: 51627 (12+)
[2016-05-25] MEDS: AZITHROMYCIN 500 MG in D5W 250 ML IV SCH (17:01)
[2016-05-25] MEDS: NS 1,000 ML IV SCH (17:02)
[2016-05-25] MEDS: ENOXAPARIN 40 MG/0.4 ML PFS SQ SCH (17:03)
[2016-05-25] MEDS ORDERED: LATANOPROST 0.005% OPHTH SOLN 2.5 ML OU SCH (21:00)
[2016-05-25] MEDS ORDERED: DORZOLAMIDE/TIMOLOL OPHTH SOLN 10 ML OU SCH (21:00)
[2016-05-25] MEDS: TEMAZEPAM 15 MG CAP PO PRN (21:33)
[2016-05-25] MEDS: LATANOPROST 0.005% OPHTH SOLN 2.5 ML OU SCH (23:42)
[2016-05-26] MEDS: Albuterol/Ipratropium Neb 3 ML NEB NEB SCH ×2 (01:08→07:42)
[2016-05-26 04:18] LABS: MPV 8.6 fL (7.4-10.4)
[2016-05-26 04:48] VITALS: TEMP 98.3
[2016-05-26] MEDS: SODIUM CHLORIDE 0.9% 3 ML FLUSH FLUSH SCH (06:01)
[2016-05-26] MEDS: REGULAR INSULIN 100 UNITS/ML - 3 ML VIAL SQ SCH ×2 (06:01→11:34)
[2016-05-26] MEDS: METHYLPREDNISOLONE 125 MG/2 ML VIAL IV SCH ×2 (06:01→11:34)
[2016-05-26 08:05] VITALS: BP 140/80; PULSE 96
[2016-05-26] MEDS ORDERED: DORZOLAMIDE/TIMOLOL OPHTH SOLN 10 ML OU SCH (09:00)
--- NOTE | 2016-05-26 09:26 | PCM.DCS92 ---
- Final/Secondary Discharge Diagnosis (1) Sepsis Acute A41.9 - SEPSIS, UNSPECIFIED ORGANISM Present on Admission: Yes Haemophilus influenzae A41.3 - Sepsis due to Hemophilus influenzae Comment: Blood,& urine cultures are negative, and sputum culture- Haemophilus influenza. Continue IV fluid resuscitation and IV antibiotics. Follow sepsis protocol. (2) Haemophilus influenzae pneumonia Acute left lower lobe of lung J14 - Pneumonia due to Hemophilus influenzae Comment: Continue IV antibiotics with IV Rocephin and Zithromax. Also IV steroids for bronchospasm, and supplemental oxygen for hypoxia. Monitor O2 sats and CXR. Doing better. sputum culture-Haemophilus influenza (3) TOM (acute kidney injury) Acute N17.9 - ACUTE KIDNEY FAILURE, UNSPECIFIED Present on Admission: Yes Comment: Hydrate, avoid nephrotoxic medications, and follow renal function. (4) Acute lower respiratory infection Acute J22 - UNSPECIFIED ACUTE LOWER RESPIRATORY INFECTION Present on Admission: Yes Comment: Wheezing and bronchospasm have improved greatly. Wean IV steroids, continue supplemental O2, DuoNebs, and monitor O2 sats. (5) Leukocytosis Acute D72.829 - ELEVATED WHITE BLOOD CELL COUNT, UNSPECIFIED Present on Admission: Yes leukemoid reaction D72.823 - Leukemoid reaction Comment: Possibly due to recent steroid dose-pack, but may be due to severity of infection also. Discharge Disposition: [facility] Discharge Condition: Fair Cognitive Discharge Status: Unimpaired Fuctional Discharge Status: Walker Assistance, Fall Risk, Deconditioning, Ambulatory Dysfunction Physician Follow up/Referrals: Cristi Manriquez MD [NonStaff] - Two Weeks Home Medications / New Prescriptions: New Cefuroxime [Ceftin] 250 mg PO Q12H #10 tablet Prednisone [Deltasone, Orasone] 2 tabs PO DAILY #10 tab Hydrocodone/Chlorphen Polis [Tussionex] 5 ml PO Q12H PRN 7 Days PRN Reason: Cough - Alternative Azithromycin [Zithromax] 500 mg IV Q24H #2 vial Continue Latanoprost 1 drop OU DAILY Dorzolamide HCl/Timolol Maleat [Dorzolamide-Timolol Eye Drops] 1 drop OU QAM Discharge Home Medication List Dorzolamide HCl/Timolol Maleat [Dorzolamide-Timolol Eye Drops] 1 drop OU QAM 01/03 [History Confirmed 05/22/16] Latanoprost 1 drop OU DAILY 06/27/15 [History Confirmed 05/22/16] Azithromycin [Zithromax] 500 mg IV Q24H #2 vial 05/26/16 [Rx] Cefuroxime [Ceftin] 250 mg PO Q12H #10 tablet 05/26/16 [Rx] Hydrocodone/Chlorphen Polis [Tussionex] 5 ml PO Q12H PRN 7 Days 05/26/16 [Rx] Prednisone [Deltasone, Orasone] 2 tabs PO DAILY #10 tab 05/26/16 [Rx] New Discharge Medications (Rx) Azithromycin [Zithromax] 500 mg IV Q24H #2 vial 05/26/16 [Rx] Cefuroxime [Ceftin] 250 mg PO Q12H #10 tablet 05/26/16 [Rx] Hydrocodone/Chlorphen Polis [Tussionex] 5 ml PO Q12H PRN 7 Days 05/26/16 [Rx] Prednisone [Deltasone, Orasone] 2 tabs PO DAILY #10 tab 05/26/16 [Rx] O2 Device: Room Air Diet at Discharge: As Tolerated, Regular Activity: No Restrictions, As Tolerated Call Office For: Worsening Symptoms, Fever over 100.5, Pain Uncontrolled By Meds - DC Summary Notes Hospital Course Note:: Discharge summary on patient named CECILIA ROSENBERG admitted to [facility] on 05/22/16 by Katarina Stone MD. Date of discharge is []. 80-year-old gentleman admitted to our facility with sepsis due to Haemophilus influenzae also causing a Haemophilus influenzae pneumonia. He had acute kidney injury upon admission but was hydrated received IV antibiotics and has slowly improved. Today on hospital day 4 he has ambulated in the halls with an O2 sat of 95% on room air. He feels too weak to discharge home and would like to go to skilled facility prior to going back home where he lives alone. At this point patient has reached maximum benefit of hospitalization. He is stable for discharge to skilled facility. Total Time: 55 min - Physical Exam Vital Signs: Last Vital Signs Temp 98.3 F 05/26/16 08:00 Pulse 96 05/26/16 08:00 Resp 18 05/26/16 08:00 BP 140/80 05/26/16 08:00 Pulse Ox 95 05/26/16 09:08 Oxygen Pulse Oxygen Saturation 95 O2 Device Room Air Oxygen Flow Rate 1 Fraction of Inspired Oxygen ( 2 FIO2) Constitutional: No apparent distress, Alert, Well nourished, Well appearing Oriented to: Time, Person, Place - HEENT Head: Normal Eye: Normal (PERRL: EOMI) Oropharynx: Normal. negative: Drooling, Exudate, Red Tympanic Membrane: Dull ENT EAC: negative: Cerumen TMJ: Normal Nose: negative: Bleeding, Congestion, Discharge - Respiratory/Cardiovascular Respiratory: Diminished, Rales (left> right), Rhonchi (WORSE ON LEFT), Tachypnea. negative: Wheezes - GI Auscultation: Normal Palpation: Normal (soft, nondistended, no mass) Tenderness: Non tender Traylor's Sign: Negative Rectal Exam: Deferred - Musculoskeletal Back: Normal Extremities: Normal, Pedal Pulse (normal), Radial Pulse (normal). negative: Clubbing, Cyanosis, Edema - Integumentary Lymphatics: Normal - Neurologic Memory Impaired: Normal Cerebellar: Normal Mood Description: Normal Thought: Coherent Perception: Normal - Other Exam Other Exam Findings: Laboratory Results - last 24 hr 05/25/16 05/25/16 05/25/16 11:26 16:03 20:28 WBC RBC Hgb Hct MCV MCH MCHC RDW Plt Count MPV POC Capillary Glucose 342 H 368 H 307 H 05/26/16 05/26/16 03:40 05:46 WBC 11.8 H RBC 2.72 L Hgb 8.2 L Hct 24.1 L MCV 89 MCH 30.3 MCHC 34.1 RDW 16.8 H Plt Count 283 MPV 8.6 POC Capillary Glucose 253 H Microbiology 05/22/16 13:45 Sputum Gram Stain - Final 05/22/16 13:45 Sputum Sputum Culture - Final Haemophilus influenzae EXAM: PORTABLE CHEST 1 VIEW COMPARISON: PA and lateral chest x-ray of May 22, 2016. FINDINGS: The lungs are hypoinflated but the patient is positioned in a lordotic fashion. There remains gas density in the retrocardiac region on the left compatible with a known large hiatal hernia -partially intra thoracic stomach. There is mild blunting of the left lateral costophrenic angle. The lungs exhibit no discrete infiltrates though mild atelectasis on the left is not excluded. The heart is not enlarged. The pulmonary vascularity is normal. IMPRESSION: No definite pneumonia. There is a hiatal hernia -partially intra thoracic stomach which increases the retrocardiac densities. A small amount of left lower lobe atelectasis and trace left pleural effusion may be present. Electronically Signed By: Gutierrez Guerar M.D. On: 05/23/2016 07:37
[2016-05-26] MEDS: CEFTRIAXONE 1 GM in D5W 100 ML IV SCH (11:33)
== END 2016-05-26 12:15 | disposition home health service (06) | DRG 871 ==
LOC: ED 13:22 → PCU 14:46
PROVIDERS: ADMIT Family Medicine; ATTEND Hospitalist
PROC: 4A033R1 Measurement of Arterial Saturation, Peripheral, Percutaneous Approach (ICD-10-PCS; principal; 2016-05-22)
DX: A41.3 Sepsis due to Hemophilus influenzae (principal); J14 Pneumonia due to Hemophilus influenzae; N17.9 Acute kidney failure, unspecified; R09.02 Hypoxemia; R65.20 Severe sepsis without septic shock; Z60.2 Problems related to living alone; M19.90 Unspecified osteoarthritis, unspecified site; G89.29 Other chronic pain; M54.9 Dorsalgia, unspecified; H40.9 Unspecified glaucoma; Z87.442 Personal history of urinary calculi
CPT/HCPCS: 36415; 36600; 71010; 71020; 80048; 80053; 81001; 82550; 82803; 82962; 83605; 83880; 84484; 85007; 85027; 85610; 85730; 87040; 87070; 87077; 87086; 87181; 87205; 93005; 94640; 96361; 96365; 96366; 96372; 97161; 97165; 99284; G0237; J0456; J0696; J1650; J2930; J3490; J7060; J7070; J7620